=== PATIENT | female | born 1955 ===

== ENCOUNTER 2017-04-30 11:28 | Outpatient (CLI) | payer OTHER ==
--- NOTE | 2017-04-30 13:59 | Mammography Report ---
BILATERAL DIGITAL SCREENING MAMMOGRAM with CAD : 04/30/17 11:28:00 CLINICAL: Routine screening.Previous right benign biopsy. COMPARISON:04/29/16 FINDINGS: The breasts are heterogeneously dense, which may obscure small masses.Stable low-density right periareolar circumscribed mass with the biopsy clip. No new mass, architectural distortion or suspicious calcifications. IMPRESSION: No mammographic evidence of malignancy. BI-RADS CATEGORY: 2 -- Benign RECOMMENDATION: Routine mammographic screening in one year. COMMENT: Patient follow-up letters are generated by our [employer] application.
== END 2017-04-30 11:29 | disposition home or self-care (01) ==
LOC: SPVWC 11:28
PROVIDERS: ATTEND Specialist
DX: Z12.31 Encounter for screening mammogram for malignant neoplasm of breast (principal)
CPT/HCPCS: 77067; G0202